=== PATIENT | female | born 1950 | race Caucasian/White ===

== ENCOUNTER → 2016-08-13 | Outpatient (CLI) | payer BC ==
[~2016-08-13] MED LIST: AMLO2.5T PO; BENA20TA2 PO; CALC600T12 PO; CARV12.52 PO; DOCU100C37 PO; EST30C VG; ESTR1TAB24 PO; HYDR12.5 PO; IBUP-1780 PO; OXYC-465 PO; PRAV20TA3 PO; SPIR25TA3 PO
--- NOTE | 2016-08-14 10:20 | Diagnostic Imaging Report ---
EXAMINATION: Bilateral screening mammogram with a Computer Aided Detection (CAD) system. INDICATION: Screening. PERSONAL HISTORY: No current complaints stated on the questionnaire. COMPARISON: 07/25/2015. FINDINGS: The breasts are composed of heterogeneously dense parenchyma which may decrease mammographic sensitivity. There are scattered benign-appearing calcifications. There is a 1 cm asymmetry seen along the central slightly superior aspect of the left MLO view. The right breast demonstrates no definite change. IMPRESSION: Focal compression views and ultrasound evaluation for the central slightly superior left breast asymmetry would be recommended. ACR BI-RADS Category 0: Incomplete. (Needs additional imaging evaluation). Result letter will be mailed to the patient. Note: At least 10% of breast cancer is not imaged by mammography. Dictated by: Dictated on workstation # [id number]
== END ==
LOC: RAD 13:50
PROVIDERS: ATTEND Obstetrics & Gynecology
DX: Z12.31 Encounter for screening mammogram for malignant neoplasm of breast (principal); N64.89 Other specified disorders of breast
CPT/HCPCS: 77067

== ENCOUNTER → 2016-08-26 | Outpatient (CLI) | payer BC ==
--- NOTE | 2016-08-26 18:56 | Diagnostic Imaging Report ---
Left breast diagnostic mammogram. INDICATION: Asymmetry along the upper aspect of the left breast. The current study was also evaluated with a Computer Aided Detection (CAD) system. FINDINGS: Focal compression view and the lateral projection demonstrate persistent underlying densities likely related to the dense background parenchyma with no definitive underlying mass. Benign-appearing calcifications are seen. IMPRESSION: Findings are suggestive of summation artifact of parenchyma with no definite underlying lesion. Ultrasound evaluation pending. ACR BI-RADS Category 0: Incomplete. (Needs additional imaging evaluation). Result letter will be mailed to the patient. Note: At least 10% of breast cancer is not imaged by mammography. Dictated by: Dictated on workstation # [id number]
--- NOTE | 2016-08-26 19:06 | Diagnostic Imaging Report ---
EXAMINATION: Left breast ultrasound. INDICATION: Asymmetry along the upper aspect of the left breast. FINDINGS: At 01:30 position, 4 cm from the nipple, there is a 0.9 x 0.7 x 0.7 cm simple cyst. There are adjacent other smaller simple cysts and duct ectasia. There is no solid mass identified. The entire outer half and retroareolar region of the left breast was scanned. IMPRESSION: Duct ectasia and cysts in the upper outer quadrant may explain the underlying asymmetry seen on mammography with no suspicious solid mass. Annual screening mammogram is recommended. ACR BI-RADS Category 2: Benign findings. Dictated by: Dictated on workstation # [id number]
== END ==
LOC: RAD 09:04
PROVIDERS: ATTEND Obstetrics & Gynecology
DX: N60.42 Mammary duct ectasia of left breast (principal); N60.12 Diffuse cystic mastopathy of left breast
CPT/HCPCS: 76641